=== PATIENT | female | born 1960 | race Caucasian/White ===

== ENCOUNTER → 2020-03-23 | Outpatient (CLI) | payer MEDICARE ==
[~2020-03-23] MED LIST: LEVO300T4 PO; LISI1TAB39 PO; METF10002 PO; METF500T17 PO; MULT-658 PO; PITA2TAB2 PO; RIVA20TA PO; SENN8.6T98 PO; SPIR25TA5 PO; SULF1TAB23 PO; TRAM50TA2 PO
== END | disposition home or self-care (01) ==
LOC: CFH 13:28
PROVIDERS: ATTEND Nurse Practitioner
DX: Z12.31 Encounter for screening mammogram for malignant neoplasm of breast (principal); N64.89 Other specified disorders of breast
CPT/HCPCS: 77063; 77067